=== PATIENT | male | born 1985 | race Caucasian/White ===

== ENCOUNTER 2018-11-22 01:42 | Emergency (ER) | payer MEDICAID, OTHER ==
[2018-11-22 02:01] VITALS: RESP 18; O2SAT 97
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
[2018-11-22 02:42] VITALS: BP 128/78; PULSE 72; TEMP 98.2
== END 2018-11-22 02:56 | disposition home or self-care (01) ==
LOC: C.ER 01:42
DX: S80.02XA Contusion of left knee, initial encounter (principal); S80.01XA Contusion of right knee, initial encounter; S80.10XA Contusion of unspecified lower leg, initial encounter; V89.2XXA Person injured in unspecified motor-vehicle accident, traffic, initial encounter